=== PATIENT | female | born 1950 | race Caucasian/White ===

== ENCOUNTER 2018-01-10 13:08 | Outpatient (CLI) | payer MEDICARE ==
--- NOTE | 2018-01-10 15:31 | MRI ---
MRI LUMBAR SPINE WITHOUT CONTRAST: Technique: Multiplanar, multisequential imaging of the lumbar spine obtained. Indications: Low back pain. FINDINGS: Lumbar vertebral maintain height and alignment. Mild degenerative disc changes are seen. Loss of disc space noted at L3-4, L4-5, and L5-S1. There are rudimentary ribs T12. This leaves five l umbar type vertebrae with L5 being partially transitional. No disc bulge seen at L1-2 or L2-3. Mild facet arthrosis at these levels without central canal stenos is. L3-4: Broad based disc bulge flattens the thecal sac. Facet and ligamentous hypertrophy is pronounced . Moderate to severe central canal stenosis at this level. Bilateral foraminal stenosis secondary to the disc bulge and hypertrophic change. L4-5: Broad based disc bulge is seen with prominent facet and ligamentous hypertrophy resulting in mo derate central canal stenosis. Bilateral foraminal stenosis. L5-S1: No significant disc bulge or protrusion. Small thecal sac without central canal stenosis. IMPRESSION: 1. Broad based disc bulge at L3-4 and L4-5 with posterior hypertrophic changes resulting in moderate central canal stenosis at both of these levels. There is foraminal stenosis at these levels as descri bed above. POS: EVA
== END 2018-01-10 13:09 | disposition home or self-care (01) ==
LOC: SCSMRI 13:08
PROVIDERS: ATTEND Neurological Surgery
DX: M51.16 Intervertebral disc disorders with radiculopathy, lumbar region (principal); M48.061 Spinal stenosis, lumbar region without neurogenic claudication; M99.83 Other biomechanical lesions of lumbar region
CPT/HCPCS: 72148

== ENCOUNTER 2018-03-26 06:46 | Inpatient (IN) | payer MEDICARE ==
[2018-03-23 14:12] VITALS: BMI 34.2
[2018-03-26] MEDS ORDERED: CEFAZOLIN/Water 2 GM/20 ML SYRINGE ONE (06:52)
[2018-03-26 07:33] LABS: Hemoglobin 12.2 g/dL (12.0-16.0); Mean Corpuscular Hemoglobin 28.9 pg (27.0-31.0); Mean Corpuscular Volume 87.7 fL (78.0-98.0); Mean Platelet Volume 8.5 fL (7.4-10.4); Platelet Count 166 thou/uL (130-400); RBC Distribution Width 13.5 % (11.5-14.5); White Blood Cell (WBC) Count 5.8 thou/uL (4.8-10.8)
[2018-03-26 07:40] LABS: Anion Gap 11 mmol/L (10-20); BUN (Urea Nitrogen) 12 mg/dL (9.8-20.1); Calc. Creatinine Clearance 76 mL/min (70-130); Carbon Dioxide 25 mmol/L (23-31); Chloride 107 mmol/L (98-107); Estimated GFR-MDRD 61; Glucose 106 mg/dL (80-115); Potassium 4.3 mmol/L (3.5-5.1); Sodium 139 mmol/L (136-145)
[2018-03-26] MEDS ORDERED: Fentanyl 100 MCG/2 ML VIAL ONE ×2 (08:00→10:08)
[2018-03-26] MEDS ORDERED: ePHEDrine/0.9% NaCl/PF SYRINGE 50 mg/10 ml ONE ×2 (09:23→12:19)
--- NOTE | 2018-03-26 09:42 | OP ---
DATE OF PROCEDURE: 03/26/2018 SURGEON: Anibal Amos M.D. PROGRAM CHECKER: Raciel Caban PA-C. PROCEDURE PERFORMED: L3 through L5 decompressive laminectomies, right L3-L4 laminectomy, facetectomy , and foraminotomy, interbody arthrodesis, intravertebral biomechanical device, local morselized auto graft, demineralized bone matrix, posterior lateral arthrodesis and pedicle screw instrumentation rig ht L3-L4. DESCRIPTION OF PROCEDURE: The patient was brought to the operating room and intubated. She was roll ed in the prone position on gel-filled chest rolls. Incision was made exposing L3 through L5 and our level was confirmed by x-ray. We performed complete L5, complete L4, and inferior L3 laminectomies, completely decompressing the central and bilateral lateral recesses of the spinal canal. Next, we t urned our attention to right L3-L4 where a complete facetectomy was performed and a right L3 foramino temo was performed completely decompressing the right L3 nerve root. The disc was incised and debrid ed in multiple fragments and the bony endplates decorticated for the purpose of arthrodesis. An appr opriately sized intravertebral biomechanical PEEK device was brought into the field, filled with jer neralized bone matrix and local morselized autograft, and tapped into place securely at L3-L4. Next, pedicle screws were placed at right L3 and right L4 using lateral fluoroscopic guidance and position ing was confirmed with x-ray. Wu was secured between the screws. Compression was applied and the s crews were final tightened. The wound was then extensively irrigated, immaculate hemostasis was secu red. A combination of demineralized bone matrix, local morselized autograft was laid over the lamina r and posterolateral surfaces for the purpose of arthrodesis. Vancomycin powder was applied and the wound was closed in anatomic layers over a drain.
[2018-03-26] MEDS ORDERED: diphenhydrAMINE 25 MG CAP PO PRN (10:46)
[2018-03-26] MEDS ORDERED: Promethazine HCl 25 MG/ML VIAL IM PRN (10:46)
[2018-03-26] MEDS ORDERED: HYDROcodone/Acetaminophen 10/325 mg Tablet PO PRN (10:46)
[2018-03-26] MEDS ORDERED: traMADol HCl 50 MG TAB PO PRN (10:46)
[2018-03-26] MEDS ORDERED: Promethazine 25 MG TAB PO PRN (10:46)
[2018-03-26] MEDS ORDERED: Mag-Al 1200 mg/1200 mg/30 ML UDCUP PO PRN (10:46)
[2018-03-26] MEDS ORDERED: Promethazine HCl 12.5 MG SUPP PR PRN (10:46)
[2018-03-26] MEDS ORDERED: tiZANidine HCl 4 MG TAB PO PRN (10:46)
[2018-03-26] MEDS ORDERED: diphenhydrAMINE 50 MG/ML VIAL IVP PRN (10:46)
[2018-03-26] MEDS ORDERED: Ondansetron HCl/PF 4 MG/2 ML Vial IVP PRN (10:48)
[2018-03-26] MEDS ORDERED: PROVENTIL INHALER 6.7 G (200 INHALATIONS) INH PRN (11:05)
[2018-03-26] MEDS ORDERED: SUMATRIPTAN SUCCINATE L NARE PRN (11:11)
[2018-03-26] MEDS ORDERED: Milk Of Magnesia 30 ML UDCUP PO PRN (11:14)
[2018-03-26] MEDS ORDERED: Bisacodyl 10 MG SUPP PR PRN (11:14)
[2018-03-26] MEDS ORDERED: Ondansetron HCl/PF 4 MG/2 ML Vial ONE (12:19)
[2018-03-26] MEDS ORDERED: PROPOFOL 200 MG/20 ML VIAL ONE (12:19)
[2018-03-26] MEDS ORDERED: Lidocaine 1% PF 5 ML VIAL ONE (12:19)
[2018-03-26] MEDS ORDERED: Glycopyrrolate 0.2 MG/ML 5 ML SYRINGE ONE (12:19)
[2018-03-26] MEDS ORDERED: Dexamethasone 20 MG/5 ML VIAL ONE (12:19)
[2018-03-26] MEDS: Sodium Chloride 0.9% 1,000 ML IV SCH ×2 (12:24→20:45)
[2018-03-26] MEDS ORDERED: Prevnar 13-Val Conj/PF 0.5 ML SYRINGE IM ONE (12:45)
[2018-03-26] MEDS: HYDROcodone/Acetaminophen 10/325 mg Tablet PO PRN ×2 (13:07→19:13)
[2018-03-26] MEDS ORDERED: CEFAZOLIN/Water 2 GM/20 ML SYRINGE SLOW IVP SCH (14:00)
[2018-03-26] MEDS: CEFAZOLIN/Water 2 GM/20 ML SYRINGE SLOW IVP SCH ×2 (16:46→23:57)
[2018-03-26] MEDS: Flecainide 50 MG TAB PO SCH (20:45)
[2018-03-26] MEDS: Atorvastatin Calcium 40 MG TAB PO SCH (20:45)
[2018-03-27] MEDS: traMADol HCl 50 MG TAB PO PRN ×2 (06:13→13:58)
[2018-03-27] MEDS: Acetaminophen 500 MG TAB PO PRN ×2 (06:13→18:17)
--- NOTE | 2018-03-27 06:53 | EKG ---
Test Reason : PREOP Blood Pressure : / mmHG Vent. Rate : 057 BPM Atrial Rate : 057 BPM P-R Int : 182 ms QRS Dur : 088 ms QT Int : 474 ms P-R-T Axes : 072 009 030 degrees QTc Int : 461 ms Sinus bradycardia Otherwise normal ECG Confirmed by VALENCIA GRAY ([id number]) on 03/27/2018 6:53:12 AM Referred By: PAM Confirmed By:VALENCIA GRAY
--- NOTE | 2018-03-27 07:04 | PRG ---
DATE OF SERVICE: 03/27/2018 SUBJECTIVE: The patient is a 67-year-old female status post L3-5 laminectomy, L3-L4 fusion, postoperative day #1. Pt reports that she believes [place] is causing her to have some nausea. She was treated with nausea medications with improvement of her symptoms. She has had very little to eat secondary to this nausea. She has been ambulatory short distances throughout the department and voiding appropriately. She is sitting in the bed comfortably in no acute distress. Dressing is dry along the lower back. MAUDE drain is in place and had approximately 240 mL out overnight. She has free active range of motion of all extremities. No focal motor weakness or reflex asymmetry. We will plan to continue to monitor the patient an additional night for increased pain control, nausea control, and MAUDE drain output. We are going to try tramadol for pain this morning. If these symptoms improve and MAUDE drain output decreases, I anticipate the patient could be discharged to home tomorrow. CARRIE
[2018-03-27] MEDS: Flecainide 50 MG TAB PO SCH ×2 (08:07→21:43)
[2018-03-27] MEDS: Loratadine 10 MG TAB PO SCH (08:07)
[2018-03-27] MEDS: Fenofibrate Nanocrystallized 145 MG TAB PO SCH (08:08)
[2018-03-27] MEDS: Propranolol HCl LA 80 MG CAP PO SCH (08:10)
[2018-03-27] MEDS: CEFAZOLIN/Water 2 GM/20 ML SYRINGE SLOW IVP SCH ×2 (08:14→16:59)
[2018-03-27] MEDS: Sodium Chloride 0.9% 1,000 ML IV SCH (16:49)
[2018-03-27] MEDS: Atorvastatin Calcium 40 MG TAB PO SCH (21:43)
[2018-03-28] MEDS: CEFAZOLIN/Water 2 GM/20 ML SYRINGE SLOW IVP SCH ×3 (00:21→15:47)
[2018-03-28] MEDS: Acetaminophen 1,000 MG in Premix Bag 1 BAG IVPB PRN ×4 (01:48→20:48)
[2018-03-28] MEDS: Sodium Chloride 0.9% 1,000 ML IV SCH ×2 (01:48→15:47)
[2018-03-28] MEDS ORDERED: Sodium Chloride 0.9% 500 ML IVPB SCH (03:30)
--- NOTE | 2018-03-28 07:38 | PRG ---
DATE OF SERVICE: 03/28/2018 SUBJECTIVE: The patient is a 67-year-old female postoperative day #2 status post L3-L5 laminectomy, L3-L4 fusion. She continues to have significant output from the MAUDE drain, although it does appear to be trending downward. The patient had once 80 mL output last night. Her nausea has improved since discontinuing hydrocodone; however, tramadol and a muscle relaxer appear to be slightly dropping the patient's blood pressure. She also reports a headache this morning. She describes it as a dull pres sure sensation all across the frontal region. No nausea or dizziness. The headache is not positiona l. She is lying in the bed comfortably in no acute distress. Pupils equal and reactive to light. Extra ocular movements intact. Lumbar dressing remains dry. Free active range of motion of all extremitie s. No focal motor weakness. The MAUDE drain output is bright red and does not appear consistent with C SF fluid. We will continue to monitor MAUDE drain output an additional night. I am recommending that we hold any narcotic medications and treat the patient's pain with regular Tylenol since she is having slight hyp otension with the other medications. We will continue to monitor her symptoms. I have discussed thi s plan with Dr. Amos and he is in agreement.
[2018-03-28] MEDS: Loratadine 10 MG TAB PO SCH (07:55)
[2018-03-28] MEDS: Flecainide 50 MG TAB PO SCH ×2 (07:55→22:04)
[2018-03-28] MEDS: Propranolol HCl LA 80 MG CAP PO SCH (07:56)
[2018-03-28] MEDS: Fenofibrate Nanocrystallized 145 MG TAB PO SCH (07:56)
--- NOTE | 2018-03-28 11:14 | PDOC.PN ---
- Subjective Encounter Start Date: 03/28/18 Encounter Start Time: 09:30 -: old records requested/rev Patient seen and examined. No new complaints. No overnight events pt is seated in chair, she denies dizziness, no chest pain pain is controlled - Objective MAR Reviewed: Yes Vital Signs & Weight: Vital Signs (12 hours) Temp Pulse Resp BP Pulse Ox 03/28/18 08:02 98.0 F 71 16 03/28/18 07:12 98.0 F 71 16 96/60 94 L 03/28/18 05:42 92/59 L 03/28/18 03:48 98.0 F 67 18 92/59 L 93 L 03/28/18 00:00 98.2 F 70 16 82/60 L 91 L Weight Weight 175 lb I&O: 03/27/18 03/28/18 03/29/18 06:59 06:59 06:59 Intake Total 790 1160 Output Total 830 200 Balance -40 960 Result Diagrams: 03/26/18 07:12 03/26/18 07:12 Phys Exam - Physical Examination Constitutional: NAD HEENT: PERRLA, moist MMs, sclera anicteric Neck: no JVD, supple Respiratory: no wheezing, no rales, no rhonchi Cardiovascular: RRR, no significant murmur, no rub Gastrointestinal: soft, non-tender, no distention, positive bowel sounds surgical site with dressing and drain in place Musculoskeletal: no edema, pulses present Neurological: non-focal, normal sensation, moves all 4 limbs Lymphatic: no nodes Psychiatric: normal affect, A&O x 3 Skin: no rash, normal turgor Dx/Plan (1) S/P lumbar laminectomy Code(s): Z98.890 - OTHER SPECIFIED POSTPROCEDURAL STATES Status: Acute (2) Hypotension Status: Resolved (3) Obesity (BMI 30.0-34.9) Code(s): E66.9 - OBESITY, UNSPECIFIED Status: Chronic (4) Arrhythmia Code(s): I49.9 - CARDIAC ARRHYTHMIA, UNSPECIFIED Status: Chronic Qualifiers: Atrial fibrillation type: unspecified (5) Migraine headache Code(s): G43.909 - MIGRAINE, UNSP, NOT INTRACTABLE, WITHOUT STATUS MIGRAINOSUS Status: Chronic (6) GERD (gastroesophageal reflux disease) Code(s): K21.9 - GASTRO-ESOPHAGEAL REFLUX DISEASE WITHOUT ESOPHAGITIS Status: Chronic (7) Asthma Code(s): J45.909 - UNSPECIFIED ASTHMA, UNCOMPLICATED Status: Chronic (8) Anxiety and depression Code(s): F41.9 - ANXIETY DISORDER, UNSPECIFIED; F32.9 - MAJOR DEPRESSIVE DISORDER, SINGLE EPISODE, UNSPECIFIED Status: Chronic (9) Dyslipidemia Code(s): E78.5 - HYPERLIPIDEMIA, UNSPECIFIED Status: Chronic - Plan cont current plan of care, plan discussed w/ family, PT/OT * continue IVF * hypotension resolved after bolus and IVF, pt is asymptomatic for now * home medication reviewed * medication reviewed as below * symptomatic treatment * discussed with * still has drainage in [place] drain * continue PT * discharge decision as per primary team * will follow * code status- full code, surrogate decision maker. Review of Systems - Review of Systems Constitutional: negative: fever, chills, sweats, weakness, malaise, other Eyes: negative: Pain, Vision Change, Conjunctivae Inflammation, Eyelid Inflammation, Redness, Other ENT: negative: Ear Pain, Ear Discharge, Nose Pain, Nose Discharge, Nose Congestion, Mouth Pain, Mouth Swelling, Throat Pain, Throat Swelling, Other Respiratory: negative: Cough, Dry, Shortness of Breath, Hemoptysis, SOB with Excertion, Pleuritic Pain, Sputum, Wheezing Cardiovascular: negative: chest pain, palpitations, orthopnea, paroxysmal nocturnal dyspnea, edema, light headedness, other Gastrointestinal: negative: Nausea, Vomiting, Abdominal Pain, Diarrhea, Constipation, Melena, Hematochezia, Other Genitourinary: negative: Dysuria, Frequency, Incontinence, Hematuria, Retention , Other Musculoskeletal: Back Pain. negative: Neck Pain, Shoulder Pain, Arm Pain, Hand Pain, Leg Pain, Foot Pain, Other Skin: negative: Rash, Lesions, Basilio, Bruising, Other Neurological: negative: Weakness, Numbness, Incoordination, Change in Speech, Confusion, Seizures, Other - Medications/Allergies Allergies/Adverse Reactions: Allergies Allergy/AdvReac Type Severity Reaction Status Date / Time codeine Allergy N/V Verified 03/23/18 14:08 Sulfa (Sulfonamide Allergy Hives Verified 03/23/18 14:08 Antibiotics) Medications: Current Medications Al Hydroxide/Mg Hydroxide (Maalox) 30 ml PO Q4H PRN PRN Reason: Heartburn or Indigestion Albuterol Sulfate (Proventil Hfa) 2 puff INH Q6HR PRN PRN Reason: SOB &/or Wheezing Atorvastatin Calcium (Lipitor) 80 mg PO HS [facility] Last Admin: 03/27/18 21:43 Dose: Not Given Bisacodyl (Dulcolax) 10 mg NV Q12H PRN PRN Reason: Constipation Cefazolin Sodium (Ancef) 2 gm SLOW IVP 0030,0830,1630 [facility] Last Admin: 03/28/18 07:54 Dose: 2 gm Diphenhydramine HCl (Benadryl) 25 mg PO Q6H PRN PRN Reason: Itching Diphenhydramine HCl (Benadryl) 25 mg IVP Q6H PRN PRN Reason: Itching Fenofibrate (Tricor) 145 mg PO DAILY [facility] Last Admin: 03/28/18 07:56 Dose: 145 mg Flecainide Acetate (Tambocor) 50 mg PO BID [facility] Last Admin: 03/28/18 07:55 Dose: 50 mg Sodium Chloride (Normal Saline 0.9%) 1,000 mls @ 75 mls/hr IV .[id number] [facility] Last Admin: 03/28/18 01:48 Dose: 1,000 mls Acetaminophen 1,000 mg/ Device 100 mls @ 400 mls/hr IVPB Q6H PRN PRN Reason: Pain Stop: 03/29/18 01:34 Last Admin: 03/28/18 07:54 Dose: 100 mls Loratadine (Claritin) 10 mg PO DAILY [facility] Last Admin: 03/28/18 07:55 Dose: Not Given Magnesium Hydroxide (Milk Of Magnesium) 30 ml PO Q12H PRN PRN Reason: Constipation Ondansetron HCl (Zofran) 4 mg IVP Q8H PRN PRN Reason: Nausea/Vomiting Last Admin: 03/26/18 16:05 Dose: 4 mg Pantoprazole Sodium (Protonix) 40 mg PO 2100 [facility] Last Admin: 03/27/18 21:43 Dose: 40 mg Estr/Levo 0.045/0. 015mg [Climara Pro Patch] 1 each TOP Q7D@0900 [facility] Sumatriptan Succinate Nas[place] 5mg 1 each L NARE Q2H PRN PRN Reason: Migraine Headache Promethazine HCl (Phenergan) 12.5 mg IM Q4H PRN PRN Reason: Nausea/Vomiting Last Admin: 03/26/18 11:12 Dose: 12.5 mg Promethazine HCl (Phenergan) 12.5 mg PO Q4H PRN PRN Reason: Nausea/Vomiting Promethazine HCl (Phenergan Suppository) 12.5 mg NV Q4H PRN PRN Reason: Nausea/Vomiting Propranolol HCl (Inderal La) 160 mg PO DAILY [facility] Last Admin: 03/28/18 07:56 Dose: 160 mg Sertraline HCl (Zoloft) 50 mg PO DAILY [facility] Last Admin: 03/28/18 07:54 Dose: 50 mg Sodium Chloride (Flush - Normal Saline) 10 ml IVF Q12HR [facility] Last Admin: 03/28/18 08:01 Dose: 10 ml Sodium Chloride (Flush - Normal Saline) 10 ml IVF PRN PRN PRN Reason: Saline Flush Tizanidine HCl (Zanaflex) 4 mg PO Q6H PRN PRN Reason: MUSCLE SPASM Last Admin: 03/27/18 13:58 Dose: 4 mg
[2018-03-28] MEDS: Atorvastatin Calcium 40 MG TAB PO SCH (20:50)
[2018-03-29] MEDS: CEFAZOLIN/Water 2 GM/20 ML SYRINGE SLOW IVP SCH ×2 (00:55→07:50)
[2018-03-29] MEDS ORDERED: Acetaminophen 1,000 MG in Premix Bag 1 BAG IVPB PRN (02:17)
[2018-03-29] MEDS: Acetaminophen 325 MG TAB PO PRN ×2 (02:53→07:50)
[2018-03-29] MEDS: Sodium Chloride 0.9% 1,000 ML IV SCH (07:15)
[2018-03-29] MEDS: Flecainide 50 MG TAB PO SCH (07:50)
[2018-03-29] MEDS: Fenofibrate Nanocrystallized 145 MG TAB PO SCH (07:50)
[2018-03-29] MEDS: Propranolol HCl LA 80 MG CAP PO SCH (07:50)
[2018-03-29] MEDS: Loratadine 10 MG TAB PO SCH (07:53)
[2018-03-29 08:10] VITALS: BP 111/72; TEMP 98.6
--- NOTE | 2018-03-29 08:47 | DIS ---
DATE OF ADMISSION: 03/26/2018 DATE OF DISCHARGE: 03/29/2018 HOSPITAL COURSE: The patient is a 67-year-old female status post L3-L5 laminectomy, L3-L4 fusion. T marco is postoperative day #3. She reports she is doing well with regards to pain since her surgery. She had some initial hypotension with other pain medications, but has been tolerating her pain well and blood pressure with regular p.o. Tylenol. Her MAUDE has continued to trend downward and I discussed overnight output of [address] Amos. He agrees that the patient is appropriate for dischar ge home today. Her headache is also improved compared to yesterday and she is tolerating a regular d iet. She is voiding appropriately and has been ambulatory without difficulty throughout the hallways . She appears comfortable today. She is up ambulating in the hallways during the initial part of my ex am. She has 5/5 strength throughout. No focal motor weakness, no reflex asymmetry. Dressing remain s dry. We will plan to remove the patient's MAUDE drain and dismiss the patient to home today. I have discusse d home care precautions and plan to follow up with the patient in 2 weeks. I provided her with a pre scription for tramadol p.r.n. and she is advised to only take this as needed, otherwise, use over-the -counter Tylenol for pain. Please reach out to Neurosurgery for additional questions or concerns.
--- NOTE | 2018-03-29 10:06 | PDOC.PN ---
- Subjective Encounter Start Date: 03/29/18 Encounter Start Time: 08:30 Patient seen and examined. No new complaints. No overnight events - Objective MAR Reviewed: Yes Vital Signs & Weight: Vital Signs (12 hours) Temp Pulse Resp BP Pulse Ox 03/29/18 08:25 98.6 F 63 14 96 03/29/18 08:00 98.6 F 63 14 111/72 96 03/29/18 04:05 98.4 F 67 16 99/62 96 03/28/18 23:57 98.7 F 65 16 99/58 L 93 L Weight Weight 175 lb I&O: 03/28/18 03/29/18 03/30/18 06:59 06:59 06:59 Intake Total 4410 Output Total 490 30 Balance 3920 -30 Result Diagrams: 03/26/18 07:12 03/26/18 07:12 Phys Exam - Physical Examination Constitutional: NAD HEENT: PERRLA, moist MMs, sclera anicteric Neck: no JVD, supple Respiratory: no wheezing, no rales, no rhonchi Cardiovascular: RRR, no significant murmur, no rub Gastrointestinal: soft, non-tender, no distention, positive bowel sounds back with dressing and drain+ Musculoskeletal: no edema, pulses present Neurological: non-focal, normal sensation, moves all 4 limbs Lymphatic: no nodes Psychiatric: normal affect, A&O x 3 Skin: no rash, normal turgor Dx/Plan (1) S/P lumbar laminectomy Code(s): Z98.890 - OTHER SPECIFIED POSTPROCEDURAL STATES Status: Acute (2) Hypotension Status: Resolved (3) Obesity (BMI 30.0-34.9) Code(s): E66.9 - OBESITY, UNSPECIFIED Status: Chronic (4) Arrhythmia Code(s): I49.9 - CARDIAC ARRHYTHMIA, UNSPECIFIED Status: Chronic Qualifiers: Atrial fibrillation type: unspecified (5) Migraine headache Code(s): G43.909 - MIGRAINE, UNSP, NOT INTRACTABLE, WITHOUT STATUS MIGRAINOSUS Status: Chronic (6) GERD (gastroesophageal reflux disease) Code(s): K21.9 - GASTRO-ESOPHAGEAL REFLUX DISEASE WITHOUT ESOPHAGITIS Status: Chronic (7) Asthma Code(s): J45.909 - UNSPECIFIED ASTHMA, UNCOMPLICATED Status: Chronic (8) Anxiety and depression Code(s): F41.9 - ANXIETY DISORDER, UNSPECIFIED; F32.9 - MAJOR DEPRESSIVE DISORDER, SINGLE EPISODE, UNSPECIFIED Status: Chronic (9) Dyslipidemia Code(s): E78.5 - HYPERLIPIDEMIA, UNSPECIFIED Status: Chronic - Plan cont current plan of care, plan discussed w/ family * drain will be removed today * spoke with primary team, plan for discharge today * pt's pain controlled * resume home medication on discharge * medication reviewed as below * symptomatic treatment * BP also improved and pt is asymptomatic * discussed with bedside * will sign off. Review of Systems - Review of Systems Eyes: negative: Pain, Vision Change, Conjunctivae Inflammation, Eyelid Inflammation, Redness, Other ENT: negative: Ear Pain, Ear Discharge, Nose Pain, Nose Discharge, Nose Congestion, Mouth Pain, Mouth Swelling, Throat Pain, Throat Swelling, Other Respiratory: negative: Cough, Dry, Shortness of Breath, Hemoptysis, SOB with Excertion, Pleuritic Pain, Sputum, Wheezing Cardiovascular: negative: chest pain, palpitations, orthopnea, paroxysmal nocturnal dyspnea, edema, light headedness, other Gastrointestinal: negative: Nausea, Vomiting, Abdominal Pain, Diarrhea, Constipation, Melena, Hematochezia, Other Genitourinary: negative: Dysuria, Frequency, Incontinence, Hematuria, Retention , Other Musculoskeletal: Back Pain. negative: Neck Pain, Shoulder Pain, Arm Pain, Hand Pain, Leg Pain, Foot Pain, Other Skin: negative: Rash, Lesions, Basilio, Bruising, Other - Medications/Allergies Allergies/Adverse Reactions: Allergies Allergy/AdvReac Type Severity Reaction Status Date / Time codeine Allergy N/V Verified 03/23/18 14:08 Sulfa (Sulfonamide Allergy Hives Verified 03/23/18 14:08 Antibiotics)
[2018-03-29] MEDS ORDERED: SUMATRIPTAN SUCCINATE L NARE PRN ×2 (11:47→11:49)
[2018-04-02] MEDS ORDERED: ESTRADIOL TOP SCH ×3 (09:00)
[2018-04-02] MEDS ORDERED: LEVONORGESTREL TOP SCH ×3 (09:00)
== END 2018-03-29 10:04 | disposition home or self-care (01) | DRG 455 ==
LOC: SURG A 06:46 → SDC 06:46 → SURG A 10:30 → UNDOADMOB 10:30 → SURG A 10:30 → EDSTATUS 11:48 → OBSVTOIN 03-27 11:30 → INTOOBSV 03-27 11:30 → UNDODISIN 03-29 10:04
PROVIDERS: ADMIT Neurological Surgery; ATTEND Neurological Surgery
PROC: 01NB0ZZ Release Lumbar Nerve, Open Approach (ICD-10-PCS; principal; 2018-03-26)
PROC: 0SG00AJ Fusion of Lumbar Vertebral Joint with Interbody Fusion Device, Posterior Approach, Anterior Column, Open Approach (ICD-10-PCS; 2018-03-26)
PROC: 0SG0071 Fusion of Lumbar Vertebral Joint with Autologous Tissue Substitute, Posterior Approach, Posterior Column, Open Approach (ICD-10-PCS; 2018-03-26)
DX: M54.16 Radiculopathy, lumbar region (principal); M51.9 Unspecified thoracic, thoracolumbar and lumbosacral intervertebral disc disorder; M19.90 Unspecified osteoarthritis, unspecified site; E03.9 Hypothyroidism, unspecified; E78.00 Pure hypercholesterolemia, unspecified; K21.9 Gastro-esophageal reflux disease without esophagitis; Z98.1 Arthrodesis status; Z87.891 Personal history of nicotine dependence; E66.9 Obesity, unspecified; G43.909 Migraine, unspecified, not intractable, without status migrainosus; I48.91 Unspecified atrial fibrillation; J45.909 Unspecified asthma, uncomplicated; J32.9 Chronic sinusitis, unspecified; Z68.34 Body mass index [BMI] 34.0-34.9, adult; Z88.2 Allergy status to sulfonamides; Z88.8 Allergy status to other drugs, medicaments and biological substances
CPT/HCPCS: 36415; 76001; 80048; 85027; 90471; 90670; 93005; 93010; 96374; A4216; C1713; C1768; G0009; G8978-GP-CI; G8979-GP-CI; G8980-GP-CI; J0131; J1100; J2001; J2405; J2550; J2704; J3010